=== PATIENT | female | born 1985 | race Caucasian/White ===

== ENCOUNTER 2016-11-23 07:30 | Inpatient (IN) | payer BC, OTHER ==
[~2016-11-23] VITALS: Ht 175.3 cm; Wt 77.6 kg
[2016-11-23] VITALS (10 sets, daily range): BP systolic 113–129; RESP 18–20; TEMP 98.2; Ht 175.3 cm; Wt 77.6 kg
[2016-11-23] MEDS ORDERED: LIDOCAINE 1% BUFFERED 1 ML SYR INTRADERM PRN (07:45)
[2016-11-23] MEDS ORDERED: TERBUTALINE 1 MG/ML VIAL SUBQ PRN (07:45)
[2016-11-23] MEDS ORDERED: PROMETHAZINE 25 MG/ML VIAL IV PRN (07:45)
[2016-11-23] MEDS ORDERED: ACETAMINOPHEN 325 MG TAB PO PRN (07:45)
[2016-11-23] MEDS ORDERED: MORPHINE 5 MG/1 ML VIAL IV PRN (07:45)
[2016-11-23] MEDS ORDERED: LIDOCAINE 1% 30 ML PF INFILTRATE ONE (07:45)
[2016-11-23] MEDS ORDERED: PHARMACY TO DOSE GENTAMICIN IV PRN (07:45)
[2016-11-23] MEDS ORDERED: FAMOTIDINE 20 MG INJ IV PRN (07:45)
[2016-11-23] MEDS ORDERED: OXYTOCIN 15 UNITS/250 ML NS 250 ML IV SCH ×2 (07:45)
[2016-11-23] MEDS ORDERED: ALU/MAG/SIM 30 ML UDC PO PRN (07:45)
[2016-11-23] MEDS ORDERED: METOCLOPRAMIDE 10 MG/2 ML VIAL IV PUSH PRN (07:45)
[2016-11-23] MEDS ORDERED: LACT RINGERS 1,000 ML IV SCH (07:45)
[2016-11-23] MEDS ORDERED: CLINDAMYCIN 900 MG in DEXTROSE 5% 50 ML IV PRN (07:45)
[2016-11-23] MEDS ORDERED: FAMOTIDINE 20 MG TAB PO PRN (07:45)
[2016-11-23] MEDS ORDERED: ONDANSETRON 4 MG VIAL IV PRN (07:45)
[2016-11-23] MEDS ORDERED: [UNRECOGNIZED DRUG - REMARK] XX SCH (08:00)
[2016-11-23] MEDS ORDERED: GENTAMICIN 360 MG in SODIUM CHLORIDE 0.9% 100 ML IV PRN (08:10)
[2016-11-23] MEDS ORDERED: ROPIV/FENT 0.2%-2MCG/ML 100 ML EPIDURAL ONE (11:35)
[2016-11-23] MEDS ORDERED: FENTANYL 100 MCG/2 ML AMP ONE (11:36)
[2016-11-23] MEDS ORDERED: LACT RINGERS 500 ML IV PRN (12:10)
[2016-11-23] MEDS ORDERED: ROPIV/FENT 0.2%-2MCG/ML 100 ML EPIDURAL SCH (12:10)
[2016-11-23] MEDS ORDERED: SODIUM CHLORIDE 0.9% 500 ML IV PRN (12:10)
[2016-11-23] MEDS ORDERED: FENTANYL 100 MCG/2 ML AMP EPIDURAL ONE (12:10)
[2016-11-23] MEDS ORDERED: LACT RINGERS 500 ML IV ONE (12:10)
[2016-11-23] MEDS ORDERED: BUPIVACAINE 0.5% PF 10ML EPIDURAL ONE (14:01)
[2016-11-23] MEDS: MISOPROSTOL 200 MCG TAB PO SCH ×2 (19:30→22:04)
[2016-11-23] MEDS ORDERED: MEASLES,MUMPS,RUBELLA VAC SUBQ.VACC ONE (19:50)
[2016-11-23] MEDS ORDERED: ZOLPIDEM 5 MG TAB PO PRN (19:50)
[2016-11-23] MEDS ORDERED: BISACODYL 10 MG SUPP RECTAL PRN (19:50)
[2016-11-23] MEDS ORDERED: TDaP 0.5 ML VIAL IM.VACC ONE (19:50)
[2016-11-23] MEDS: Ibuprofen 600 MG TAB PO SCH ×2 (19:50→23:06)
[2016-11-23] MEDS ORDERED: MAG HYDROX 30 ML UDC PO PRN (19:50)
[2016-11-23] MEDS ORDERED: **ONLY ANESTEHSIA MAY ORDER OPIATES WHILE ON EPIDURAL XX SCH (20:00)
[2016-11-23] MEDS: DOCUSATE SOD 100 MG CAP PO SCH (22:00)
[2016-11-23] MEDS: DERMOPLAST SPRAY TOPICAL PRN (22:04)
[2016-11-23] MEDS: ASTRINGENT MED PADS 40'S TOPICAL PRN (22:04)
[2016-11-23] MEDS: OXYTOCIN 15 UNITS/250 ML NS 250 ML IV SCH (22:05)
[2016-11-24] VITALS (7 sets, daily range): BP systolic 115–141; RESP 16–20; TEMP 97.4–98.2
[2016-11-24] MEDS: Ibuprofen 600 MG TAB PO SCH ×4 (05:40→23:43)
[2016-11-24] MEDS ORDERED: **NOTE TO NURSE XX SCH (09:00)
[2016-11-24] MEDS: PRENATAL GUMMIES PO SCH (09:00)
[2016-11-24] MEDS: DOCUSATE SOD 100 MG CAP PO SCH (09:53)
[2016-11-25] MEDS: DOCUSATE SOD 100 MG CAP PO SCH ×2 (00:15→08:53)
[2016-11-25] MEDS: Ibuprofen 600 MG TAB PO SCH (05:16)
[2016-11-25 05:42] VITALS: BP_SYST 106; RESP 16; TEMP 98.2
[2016-11-25] MEDS: PRENATAL GUMMIES PO SCH (09:00)
[2016-11-25 09:12] VITALS: BP_SYST 115; RESP 18; TEMP 97.3
[2016-11-25] MEDS: ASTRINGENT MED PADS 40'S TOPICAL PRN (11:09)
[2016-11-25] MEDS: DERMOPLAST SPRAY TOPICAL PRN (11:09)
[2016-11-25 11:14] VITALS: BP_SYST 115; RESP 18; TEMP 97.3
[2016-11-25 11:17] VITALS: BP_SYST 115; RESP 18; TEMP 97.3
== END 2016-11-25 12:31 | disposition home or self-care (01) | DRG 775 ==
LOC: LD 07:38 → OB 22:36
PROVIDERS: ADMIT Obstetrics & Gynecology; ATTEND Obstetrics & Gynecology
PROC: 10E0XZZ Delivery of Products of Conception, External Approach (ICD-10-PCS; principal; 2016-11-23)
PROC: 10907ZC Drainage of Amniotic Fluid, Therapeutic from Products of Conception, Via Natural or Artificial Opening (ICD-10-PCS; 2016-11-23)
PROC: 3E033VJ Introduction of Other Hormone into Peripheral Vein, Percutaneous Approach (ICD-10-PCS; 2016-11-23)
DX: O80 Encounter for full-term uncomplicated delivery (principal); Z37.0 Single live birth; Z3A.39 39 weeks gestation of pregnancy
CPT/HCPCS: 82803; 85014; 85018; 85025; 86850; 86900; 86901